=== PATIENT | female | born 1970 | race Caucasian/White ===

== ENCOUNTER 2019-11-16 19:29 | Emergency (ER) | payer MEDICAID ==
[~2019-11-16] VITALS: Ht 157.5 cm; Wt 63.5 kg
[2019-11-16 19:51] VITALS: Ht 157.5 cm; Wt 63.5 kg
[2019-11-16 21:21] LABS: UA SPECIFIC GRAVITY <=1.005 (1.005-1.035); microscopic required? YES; urine erythrocyte 2+ (NEGATIVE)
[2019-11-16 21:24] LABS: BASOPHIL % 0.3 % (0-2); PLATELET COUNT 219 x10^3mcL (130-400); RED CELL DISTRIBUTION WIDTH 12.2 % (11.5-14.5)
[2019-11-16 21:37] LABS: CALCIUM 9.7 mg/dL (8.5-10.1); CARBON DIOXIDE 23.3 mmol/L (21-32); CHLORIDE SERUM 104 mmol/L (98-107); CREATININE SERUM 0.6 mg/dL (0.6-1.0); GFR1 > 60 mL/min; GLUCOSE SERUM 115 mg/dL (74-106); POTASSIUM SERUM 3.4 mmol/L (3.5-5.1); SODIUM SERUM 139 mmol/L (136-145)
[2019-11-16 21:42] LABS: ALBUMIN 4.4 g/dL (3.4-5.0); ALKALINE PHOSPHATASE 92 U/L (46-116); ALT/SGPT 17 U/L (14-59); AST/SGOT 13 U/L (15-37); BILIRUBIN TOTAL 0.5 mg/dL (0.20-1.00); CHOLESTEROL 194 mg/dL (<200); CHOLESTEROL/HDL RATIO 3.6; HDL CHOLESTEROL 54 mg/dL (40-60); TOTAL PROTEIN, SERUM 7.9 g/dL (6.4-8.2); TRIGLYCERIDES 61 mg/dL (<150)
[2019-11-16 22:30] VITALS: BP 128/74
== END 2019-11-16 22:30 | disposition home or self-care (01) ==
LOC: ED 19:29
PROVIDERS: Specialist
DX: N83.202 Unspecified ovarian cyst, left side (principal); K59.09 Other constipation; G20 Parkinson's disease
CPT/HCPCS: J1885; J7030